=== PATIENT | female | born 1995 | race Caucasian/White ===

== ENCOUNTER 2022-12-22 10:40 | Outpatient (CLI) | payer BC, SELFPAY ==
--- NOTE | 2022-12-22 11:00 | CRLHL7_ITS ---
For Patients: As a result of the Century Cures Act, medical imaging exams and procedure reports are released immediately into your electronic medical record. You may view this report before your referring provider. If you have questions, please contact your health care provider. INDICATION: First trimester scan, establish dates. COMPARISON: None. TECHNIQUE: Real-time lopez-scale imaging of the pelvis was performed. FINDINGS: Sonographic imaging demonstrates a single living intrauterine gestation. The embryo demonstrates a regular cardiac rate measuring 152 beats per minute. The embryo`s crown-rump length measurement of 1.5 cm corresponds to a gestational age of 8 weeks 0 days with a sonographic due date of 08/03/2023. There is a normal-appearing yolk sac. There are no gross abnormalities noted within the embryo at this early state of development. The gestational sac has a normal appearance. There is a 2.0 x 1.4 x 3.8 cm perigestational hemorrhage. The amount of fluid within the sac appears appropriate for gestational age. The cervix is closed. The myometrium appears normal. The ovaries are of normal size. Corpus luteal cyst right ovary. There are no suspicious fluid collections noted in the cul-de-sac. IMPRESSION: Single living intrauterine with sonographic gestational age 8 weeks 0 days and sonographic due date 08/03/2023. Subchorionic hemorrhage is present measuring 2.0 x 1.4 x 3.8 cm. Dictated by Filipe Peacock MD @ 12/22/2022 11:39:58 AM (Electronically Signed)
== END 2022-12-22 10:41 | disposition home or self-care (01) ==
LOC: US 10:42
PROVIDERS: Visit Provider Registered Nurse
DX: Z34.91 Encounter for supervision of normal pregnancy, unspecified, first trimester (principal); Z3A.09 9 weeks gestation of pregnancy
CPT/HCPCS: 76817; 86592; 86703; 86762; 86787; 86803; 86850; 86900; 86901; 87086; 87340; 87491; 87591; T1013

== ENCOUNTER 2022-12-22 12:00 | Outpatient (CLI) | payer BC, SELFPAY ==
[2022-12-22 16:10] LABS: GC DNA Amplified* NOT DETECTED (No Detected)
[2022-12-22 17:09] LABS: Chlamydia DNA Amplified* DETECTED (No Detected)
== END 2022-12-22 12:01 | disposition home or self-care (01) ==
PROVIDERS: Visit Provider Registered Nurse
DX: Z34.91 Encounter for supervision of normal pregnancy, unspecified, first trimester (principal); Z3A.09 9 weeks gestation of pregnancy
CPT/HCPCS: 86592; 86703; 86762; 86787; 86803; 86850; 86900; 86901; 87086; 87340; 87491; 87591

== ENCOUNTER 2023-01-22 14:34 | Outpatient (CLI) | payer BC, SELFPAY ==
--- NOTE | 2023-01-22 14:00 | CRLHL7_ITS ---
For Patients: As a result of the Century Cures Act, medical imaging exams and procedure reports are released immediately into your electronic medical record. You may view this report before your referring provider. If you have questions, please contact your health care provider. INDICATION: NO FHTS IN CLINIC COMPARISON: 12/22/2022 TECHNIQUE: Real-time lopez-scale imaging of the pelvis was performed. FINDINGS: Intrauterine gestational sac measuring 4.5 cm, 10 weeks 2 days. pole with crown-rump length measuring 2.0 cm, 8 weeks 4 days, no significant growth compared to the prior study. No heart tones. Yolk sac enlarged measuring 7.7 millimeters. Hypoechoic echoes within the gestational sac. Margins of the gestational sac are irregular. Ovaries not visualized. IMPRESSION: Intrauterine demise. Dictated by Filipe Peacock MD @ 01/22/2023 3:27:09 PM (Electronically Signed)
== END 2023-01-22 14:35 | disposition home or self-care (01) ==
LOC: US 14:34
PROVIDERS: Visit Provider Registered Nurse
DX: O36.80X0 Pregnancy with inconclusive fetal viability, not applicable or unspecified (principal)
CPT/HCPCS: 76817; 87086

== ENCOUNTER 2023-01-28 07:09 | Day surgery (SDC) | payer BC, SELFPAY ==
[2023-01-28 07:37] VITALS: BMI 25.2
--- NOTE | 2023-01-28 07:43 | W.PM.H&PU ---
History & Physical Update History & Physical Update H&P Reviewed and patient assessed: No changes noted H&P Updates: Preoperative diagnosis: Missed at 8 weeks, 4 days by CRL Planned procedures: Suction uterine curettage Physical exam: General: No acute distress Psych: Alert and oriented x3, full affect HEENT: Normocephalic, atraumatic Heart: Regular rate and rhythm, no murmur rub or gallop Lungs: Clear to auscultation bilaterally Labs: Blood type O-positive Chlamydia positive 12/22/22, will repeat today
[2023-01-28 07:46] VITALS: BP 119/84; PULSE 80; RESP 16; TEMP 36.8; O2SAT 98
[2023-01-28] MEDS: ETHYL CHLORIDE 1 APPLICATION 1 APPLIC TOPICAL (08:02)
[2023-01-28] MEDS: LACTATED RINGERS 1000 ML 1,000 ML 100 ML IV ×2 (08:03→09:13)
[2023-01-28] MEDS: DOXYCYCLINE HYCLATE 100 MG in 0.9 % SODIUM CHLORIDE Mini-bag 100 ML IVPB (09:10)
[2023-01-28] MEDS: CEFAZOLIN 2 GM INJ IVP (09:13)
--- NOTE | 2023-01-28 09:13 | W.ANESCHARGE ---
Anesthesia Charges Start Date/Time Anesthesia Start Date: 01/28/23 Anesthesia Start Time: 08:59 Stop Date/Time Anesthesia Stop Date: 01/28/23 Anesthesia Stop Time: 09:53
[2023-01-28] MEDS: LIDOCAINE 1 % PF 30 ML 20 ML INJECTION (09:25)
[2023-01-28 09:52] VITALS: BP 102/62; PULSE 67; RESP 16; TEMP 36.8; O2SAT 96
--- NOTE | 2023-01-28 09:57 | W.ANESCHARGE ---
Anesthesia Charges Start Date/Time Anesthesia Start Date: 01/28/23 Anesthesia Start Time: 08:59 Stop Date/Time Anesthesia Stop Date: 01/28/23 Anesthesia Stop Time: 09:53
[2023-01-28 10:00] VITALS: BP 101/59; PULSE 78; RESP 16; O2SAT 99
[2023-01-28 10:15] VITALS: BP 113/70; PULSE 78; RESP 16; O2SAT 98
--- NOTE | 2023-01-28 10:28 | P.GYNPRC_ITS ---
Procedure Note Date of procedure: 01/28/23 Pre-op diagnosis: Missed at 8 weeks, 4 days by CRL. Recent history chalmydia Post-op diagnosis: same Procedure: Suction uterine curettage Anesthesia: MAC and local Complications: None Surgeon: Criss Sky MD Estimated blood loss (mL): 25 IV fluids (mL): 1,000 Urine Output (mL): 20 Pathology: specimen obtained, sent to pathology (Endometrial curetting ) Condition: stable Disposition: same day Findings: 1. Upon pelvic exam under anesthesia, the cervix and vagina were normal in appearance. Uterus was mobile and anteverted, consistent in size with 10 weeks gestation. There were no palpable adnexal masses. 2. Moderate amount of products of conception and blood obtained with suction curettage Procedure Description: Patient was taken to the operating with IV running. She had received cefazolin and doxycycline in preoperative prophylaxis. She was placed in dorsal lithotomy position. Monitored anesthesia care was administered. She was prepped and draped in the usual sterile fashion. Her bladder was straight catheterized Exam under anesthesia was performed for the above-noted findings. Speculum was inserted. Cervix was grasped along its anterior lip with an Allis clamp, then a tenaculum. Paracervical block was performed with a total of 10 mL of 1% lidocaine. The cervix was serially dilated to 10 Stateless. A size 9 rigid suction cannula was then passed through the cervix to the uterine fundus. Suction was applied, and the suction cannula was withdrawn along the path of insertion. This was repeated several more times, with obvious return of products of conception. Thereafter, sharp curettage was performed circumfe rentially, and a gritty texture was noted throughout. Minimal tissue was obtained with curettings. Procedure was deemed complete. The tenaculum was removed from the anterior lip the cervix, and hemostasis was noted despite a shallow anterior cervical laceration. Gonorrhea and chlamydia swab was collected from vagina. The speculum was then removed from the vagina. Patient tolerated procedure well and was taken recovery area in stable condition.
[2023-01-28 10:30] VITALS: BP 122/91; PULSE 87; RESP 16; O2SAT 97
[2023-01-28] MEDS: OXYCODONE 5 MG TABLET PO (10:35)
[2023-01-28 11:59] LABS: Chlamydia DNA Amplified* NOT DETECTED (No Detected); GC DNA Amplified* NOT DETECTED (No Detected)
== END 2023-01-28 11:12 | disposition home or self-care (01) ==
PROVIDERS: Visit Provider Obstetrics & Gynecology
PROC: (CPT 59820; principal; 2023-01-28 09:00)
DX: O02.1 Missed abortion (principal)
CPT/HCPCS: 59820; 00940; 01965; 87491; 87591; 88271; 88305; 88342; T1013; A9270; J0690; J1100; J1885; J2001; J2250; J2405; J2704; J3010; J7120

== ENCOUNTER 2023-02-16 11:46 | Outpatient (CLI) | payer BC, SELFPAY | END 2023-02-16 11:47 | disposition home or self-care (01) | LOC: NFLDREF 11:47 | PROVIDERS: Visit Provider Obstetrics & Gynecology | DX: O02.1 Missed abortion (principal) | CPT/HCPCS: 84702 ==

== ENCOUNTER 2024-10-18 08:57 | Outpatient (CLI) | payer MEDICAID, SELFPAY | END 2024-10-18 08:58 | disposition home or self-care (01) | PROVIDERS: Visit Provider Midwife | DX: Z34.83 Encounter for supervision of other normal pregnancy, third trimester (principal); Z3A.34 34 weeks gestation of pregnancy | CPT/HCPCS: 86592; 86703; 86706; 86803 ==

== ENCOUNTER 2024-10-31 11:27 | Outpatient (CLI) | payer MEDICAID, SELFPAY ==
[2024-11-01 12:25] LABS: Strep B DNA Probe POSITIVE (Negative)
[2024-11-01 12:40] LABS: Strep B Susceptibility Needed? No
== END 2024-10-31 11:28 | disposition home or self-care (01) ==
LOC: NFLDREF 11:28
PROVIDERS: Visit Provider Obstetrics & Gynecology
DX: Z34.82 Encounter for supervision of other normal pregnancy, second trimester (principal)
CPT/HCPCS: 87081; 87653

== ENCOUNTER 2024-11-12 22:58 | Inpatient (IN) | payer MEDICAID, SELFPAY ==
[2024-11-12 21:58] VITALS: BP 120/70; PULSE 93
[2024-11-12 22:10] LABS: Amnisure Rom* POSITIVE
--- NOTE | 2024-11-12 23:45 | P.LDBA_ITS ---
Subjective History of Present Illness Date Seen: 11/12/24 Narrative: Patient is being admitted to Labor and Delivery for SROM 1100. She is a 29 year old at 38.0 weeks gestation. Her full history and physical was dictated by Dr. Russell on 11/07/24. Please see this for details. Active movements. +LOF. Minimal contractions. Denies vaginal bleeding or abnormal vaginal discharge. Amnisure positive Specific Issues/Plans G2 P 0010 Partner: Pete? It is a boy! H&P completed by Drew on 11/07/2024. ? #Hx of partial hydatidiform mole in 2022 Send placenta to pathology Beta HCG at 6 week #GBS bacteriuria 07/13/24-JUAN negative 08/08/24 Recommend prophylaxis in labor? #abnormal GCT 08/31/2024-136. Passed 3 hr glucose? #Hx scoliosis- no surgery hx #not immune to hep B, has received 2 out of 3 vaccines #Not immune to Rubella-offer MMR PP ? IMAGING:??? 1st trimester: 05/02/24 at 10w6d, SLIUP consistent with dating.??? Anatomy scan: Completed 07/12 at [facility] - normal visualized anatomy, EFW 390g at 73%ile - BPD 61%, HC 82%, AC 65%, FL 85%. Anterior placenta. Cervix 3.8 cm. ? ? COVID:?? Flu:?07/13/2024? Tdap:? Hep B: 08/08/2024, 09/28/2024 32wk Mental Health:?10/18/2024 34wk hgb:?10/18/24?? Pap: [(Only high-risk abnormal pap in problem list)]? ?GBS positive Tx at [] weeks gestation from []?? OB Labs 07/13/24:??? Blood type: O+, antibody screen negative.??? Hgb 08/31/24: 11.6??? Cidlqknwd41/15/25: 253??? Rubella: non-immune??? Varicella: not drawn in this - immune in 2022 RPR: not drawn???- negative 10/18 HBsAg: not drawn HepBCore: nonreactive??? Hep C: not drawn?- negative 10/18 HIV: not drawn??- negative 10/18 UC: positive GBS- JUAN 08/08/24 negative? GC/Chlamydia 04/24/2024: negative/negative??? Pap result not included in records? Genetic screening: drawn and reported low risk XY, neg carrier, but result record not included. 1hr gtt 08/31/24: 136 (abnormal per their lab) 3 hr gtt: reported as normal in a note, but actual record requested again??? It does appear these labs were drawn that are missing for NOB, but records not included. They have been requested again 10/18/24. ? OB - Problem Based A/P Additional Plan (1) PROM (premature rupture of membranes): Status: Acute Plan - PROM at 11 am on 11/12/24 - Unfavorable cervix - Admit for induction - Induction plan: 25 mcg misoprostol PO per protocol x 2 doses, then will reassess if appropriate to switch to pitocin - OK to have morphine and/or Vistaril overnight - Pain management: will eventually want and epidural - GBS+, antibiotic intrapartum - NST: 135 bpm, moderate variability, multiple qualifying acel, negative decel. Overall, reactive and reassuring - [place]: Irritable OB Exam Physical Exam Vital signs: Pulse BP 93 120/70 11/12/24 21:58 11/12/24 21:58 Narrative: SVE: ft and high per RN
[2024-11-12] MEDS: AMPICILLIN 2 GM in 0.9 % SODIUM CHLORIDE Mini-bag 100 ML IVPB (23:47)
[2024-11-12] MEDS: LACTATED RINGERS 1000 ML 1,000 ML 25 ML IV (23:48)
[2024-11-12 23:58] LABS: Hematocrit 36.5 % (33.0-51.0); Hemoglobin* 12.3 gm/dL (12.0-16.0); Immature Granulocytes Abs Auto 0.03 K/uL (0.00-0.30); Immature Granulocytes Pct Auto 0.3 %; Lymphocytes Absolute Auto 1.90 K/uL (0.90-2.90); Mean Corpuscular HGB Conc 34 gm/dL (32-36); Mean Corpuscular Hemoglobin 30 pg (26-34); Mean Corpuscular Volume 88 fL (80-100); RDW Coefficient of Variation % 12.8 % (11.5-15.5); Red Blood Count 4.13 m/uL (4.00-5.20); White Blood Count* 8.91 K/uL (4.50-11.00)
[2024-11-13] VITALS (53 sets, daily range): BP systolic 101–138; BP diastolic 54–83; PULSE 78–104; RESP 18; TEMP 36.4–36.9; O2SAT 95–100
[2024-11-13] LABS: Slide Review Reflex No
[2024-11-13] MEDS: AMPICILLIN 1 GM in 0.9 % SODIUM CHLORIDE Mini-bag 100 ML IVPB ×5 (03:47→19:56)
--- NOTE | 2024-11-13 11:02 | P.OBPN_ITS ---
Subjective Date Seen: 11/13/24 Narrative: Ghislaine is a 29 yo woman currently at 38 1/7 weeks' gestation here for PROM at term. PROM occurred on 11/12 at 1100. She has had 3 doses of oral misoprostol since admit. She is not feeling strong contractions. She is GBS positive and has been receiving ampicillin. Objective Exam: Physical exam: Vitals as noted above. General: No acute distress. accompanied by her spouse. Interview in Algerian with the help of I-pad door closer mechanic Psych: Alert and oriented x 3, full affect, sitting on birthing ball Per RN, exam at around 8:15 AM: / high Vital Signs: Last Vital Signs Temp 98.2 F 11/13/24 10:15 Pulse 78 11/13/24 08:56 Resp 18 11/13/24 09:30 BP 118/67 11/13/24 08:56 Pulse Ox 95 11/13/24 04:06 Comments: tracing: Baseline 130, accelerations present, no decelerations, moderate variability Contractions are registering on toco every 1-4 minutes. Assessment Amniotic Membrane Status: SROM Status: Category l Tracing Comments: Reassuring. GBS positive, on ampicillin Labor Progress: Still not in active labor 24 hours after SROM. s/p 3 oral doses of cytotec Maternal Status: Reassuring Plan Plan: Begin Pitocin for IOL at 1245, as soon as able after last dose of cytotec. Continuous monitoring.
[2024-11-13] MEDS: OXYTOCIN 30 unit/500 ML in NS 30 UNIT/500 ML BAG IVPB (12:44)
[2024-11-13] MEDS: LACTATED RINGERS 1000 ML 1,000 ML 125 ML IV ×2 (12:53→19:16)
[2024-11-13] MEDS: ROPIVACAINE 0.2% 100 ml 100 ML 12 MG EPIDURAL (20:44)
[2024-11-13] MEDS: LIDOCAINE 2% (PF) 5 ML VIAL EPIDURAL (20:45)
[2024-11-13] MEDS: ROPIVACAINE 0.2 % PF 10 ML INJ 20 MG EPIDURAL (20:45)
--- NOTE | 2024-11-13 20:52 | P.ANBPRC_ITS ---
[facility] Medical History Missed ab ?O02.1 - Missed (ICD-10) Scoliosis ?M41.9 - Scoliosis, unspecified (ICD-10) Partial molar ?O08.89 - Other complications following an ectopic and molar (ICD- 10) Chlamydia ?A74.9 - Chlamydial infection, unspecified (ICD-10) Surgical History H/O dilation and curettage ?Z98.890 - Other specified postprocedural states (ICD-10) H/O plastic surgery ?Z98.890 - Other specified postprocedural states (ICD-10) Family History Grandmother Diabetes Social History What is your current living situation?: I presently have a place to live Problems where you live: no known problems In the past 12 months, utilities in danger of being shut off: no In past 12 months, lack of transportation kept you from medical appts, meetings, work, or getting things needed for daily living: no In the past 12 mos, have been you worried that your food would run out before you had money to buy more?: never true In the past 12 mos, the food you bought just didn't last and you didn't have money to buy more?: never true Smoking Status: Never smoker Non-prescribed substance use: denies use Caffeine: Yes (1 coffee ,1 coke) How often does anyone, including family, friends and others, physically hurt you : never How often does anyone, including family, friends and others, insult or talk down to you: never How often does anyone, including family, friends and others, threaten you with harm: never How often does anyone, including family, friends and others, scream or curse at you: never Meds Home Medications and Allergies Home Medications ?Medication ?Instructions ?Recorded ?Confirmed ?Type cholecalciferol (vitamin D3) 50 50 mcg PO QDAY 5 11/12/24 History mcg (2,000 unit) capsule omega 4-nqq-oif-fish oil 1,000 mg 1 cap PO QDAY 11/12/24 History (120 mg-180 mg) capsule (Fish Oil) vit 168-iron 27 mg-folic 1 cap PO DAILY 10/1811/12/24 History acid 800 mcg-omega3 235 mg capsule (One-A-Day -1) Allergies Allergy/AdvReac Type Severity Reaction Status Date / Time No Known Drug Allergies Allergy Verified 11/07/24 10:41 Results Labs Labs: Laboratory Results - last 24 hr 11/12/24 11/12/24 22:01 23:40 WBC 8.91 RBC 4.13 Hgb 12.3 Hct 36.5 MCV 88 MCH 30 MCHC 34 RDW Coeff of Zackery 12.8 Plt Count 216 Neut % (Auto) 71.0 Lymph % (Auto) 21.3 [place] % (Auto) 6.1 Eos % (Auto) 1.1 Baso % (Auto) 0.2 Neut # (Auto) 6.32 Lymph # (Auto) 1.90 [place] # (Auto) 0.50 Eos # (Auto) 0.10 Baso # (Auto) 0.02 Abs Immat Gran (auto) 0.03 Imm/Tot Granulo (auto) 0.3 Membrane Rupture POSITIVE Blood Type O Positive Antibody Screen NEGATIVE Vital Signs Vital Signs: Last Vital Signs Temp 98.3 F 11/13/24 20:33 Pulse 93 11/13/24 20:51 Resp 18 11/13/24 17:48 BP 119/59 L 11/13/24 20:51 Pulse Ox 99 11/13/24 20:49 Weight: 68.039 kg Height: 162.56 cm Anesthesia Procedures Epidural Insertion Patient Location: OB Start Time: 20:00 Stop Time: 20:52 Start Date: 11/13/24 Stop Date: 11/13/24 Reason for Block: procedure for pain Patient Position: sitting Performed By: Joe Jovel Preanesthetic Checklist: IV checked, risks and benefits discussed, surgical consent, monitors and equipment checked, pre-op evaluation, timeout performed and anesthesia consent Prep: chlorhexidine gluconate Monitoring: blood pressure monitoring, continuous pulse oximetry and heart rate Approach: midline Vertebral Space: lumbar (1-5) Epidural Technique: LEAH air Needle Type: Tuohy needle Injection Technique: continuous catheter Needle gauge: 17 Needle Length (cm): 10 cm Needle Insertion Depth (cm): 7 Catheter Gauge: 19 Catheter Type: multi-orifice Catheter at skin depth (cm): 13 Test Dose Result: negative and lidocaine 1.5% with epinephrine 1 to 200,000
--- NOTE | 2024-11-13 22:27 | P.OBPN_ITS ---
Subjective Date Seen: 11/13/24 Narrative: Ghislaine is a 29 yo woman currently at 38 1/7 weeks' gestation here for PROM at term. PROM occurred on 11/12 at 1100. She has had 3 doses of oral misoprostol since admit. She has been on oxytocin for IOL since 12:45 PM. She had an epidural a short time ago. The then had cervical exam per RN, 1.5 cm as noted below. She is currently feeling very anxious because she cannot move her legs. She is GBS positive and has been receiving ampicillin. Objective Exam: Physical exam: Vitals as noted above. General: No acute distress. accompanied by her spouse. Interview in Maltese with the help of nutrition representative Psych: Alert and oriented x 3, full affect, lying in bed Exam per RN: 1.5 / 60 / -1 Vital Signs: Last Vital Signs Temp 98.2 F 11/13/24 21:33 Pulse 93 11/13/24 22:00 Resp 18 11/13/24 17:48 BP 111/55 L 11/13/24 22:00 Pulse Ox 97 11/13/24 21:09 Comments: tracing: Baseline 130, accelerations present, no decelerations, moderate variability Contractions are registering on toco every 2 minutes. Assessment Amniotic Membrane Status: SROM Status: Category l Tracing Comments: Reassuring. GBS positive, on ampicillin Labor Progress: Still not in active labor nearly 36 hours after SROM and 9 hours after initiation of oxytocin Maternal Status: Anxiety caused by immobility, otherwise reassuring Plan Plan: I will reassess her exam at 0100. If she had not made significant change by that time, we will move towards for failed IOL. We discussed the flexibility we have in that time frame if status is reassuring and she is doing well. She expressed understanding Continuous monitoring.
[2024-11-13] MEDS: LACTATED RINGERS 1000 ML 1,000 ML 115 ML IV (22:32)
[2024-11-14] VITALS (32 sets, daily range): BP systolic 91–184; BP diastolic 54–95; PULSE 62–118; RESP 18–21; TEMP 36.3–37.3; O2SAT 95–98
[2024-11-14] MEDS: AMPICILLIN 1 GM in 0.9 % SODIUM CHLORIDE Mini-bag 100 ML IVPB ×2 (00:10→04:01)
--- NOTE | 2024-11-14 01:32 | P.OBPN_ITS ---
Subjective Time Seen by Provider: 01:05 Date Seen: 11/14/24 Narrative: Ghislaine is a 29 yo woman currently at 38 2/7 weeks' gestation here for PROM at term. PROM occurred on 11/12 at 1100. She has had 3 doses of oral misoprostol since admit. She has been on oxytocin for IOL since 12:45 PM on 11/13. She had an epidural the evening of 11/13 The then had cervical exam per RN, 1.5 cm as noted below. She received a dose of Vistaril 50 mg IV and was able to sleep. She is GBS positive and has been receiving ampicillin. She is not currently feeling contractions. Objective Exam: Physical exam: Vitals as noted above. General: No acute distress. accompanied by her spouse. Interview in Greenlandic with the help of medical interpreter Psych: Alert and oriented x 3, full affect, lying in bed Vaginal exam: complete and +2; suture is directly midline; uncertain if direct OA or OP Vital Signs: Last Vital Signs Temp 99.1 F 11/14/24 01:30 Pulse 100 11/14/24 01:19 Resp 18 11/13/24 17:48 BP 101/54 L 11/14/24 01:19 Pulse Ox 97 11/13/24 21:09 Comments: tracing over the last hour: Baseline 150, accelerations present, recurrent variable decelerations with contractions, moderate variability Contractions are registering on toco about every 5 minutes. Contractions Pitocin Rate (mU/min): 14 Assessment Amniotic Membrane Status: SROM Status: Category ll Tracing Comments: Category 2, overall reassuring GBS positive, on ampicillin Labor Progress: Now in second stage labor. Maternal Status: Reassuring Plan Plan: We pushed for approximately 25 minutes with the patient unable to move head; she is not feeling urge to push. We will reposition and try again in 30 minutes. Continuous monitoring.
[2024-11-14] MEDS: LIDOCAINE 1 % PF 30 ML INJECTION (04:15)
--- NOTE | 2024-11-14 04:57 | W.PM.VAGDEL1 ---
Procedure Delivery date: 11/14/24 Procedure Done: [employer] Procedure Details: The patient is a 29 year-old G 2 P 0-0-1-0 woman admitted on 11/12/2024 at 38 Weeks, 0 Days gestation for premature rupture membranes at term.? Cervical exam on admission was fingertip and high with membranes ruptured in vertex presentation.? heart rate demonstrated baseline 135 bpm with moderate variability, positive accelerations, no decelerations; a category 1 tracing.? SROM had occurred at 11:00 a.m. on 11/12/2024 with clear fluid. ? Labor Analgesia:? Epidural ? She received 3 doses of oral Cytotec followed by Pitocin for induction of labor. ? Labor onset:? 7:00 p.m. on 11/13/2024 ? Complete:? 1:08 a.m. on 11/14/2024 ? Pushing:? Initially she pushed for approximately 30 minutes without any descent of head and no urge to push. We took a break for 30 minutes and then resumed at 2:11 a.m.. At around 90 minutes into her 2nd stage, I performed a bedside ultrasound revealing 0P position. I was able to elevate the vertex out of the pelvis and turn the had clockwise with ease. Ultimately, it appears that descended in OP presentation given the location of the caput. ? heart tones during second stage were notable for intermittent variable decelerations. ? At 4:21 a.m. a viable male infant delivered in vertex OA presentation over second-degree perineal laceration via spontaneous vaginal delivery.? Just before delivery, appeared to rotate from LOP to LORA. Infant was placed on maternal abdomen.? Cord was clamped and cut after a 30-60 second delay.? Nose and mouth were bulb suctioned.? weight pending.? 8 at 1 minute and 9 at 5 minutes.? Shoulder dystocia: No.? Nuchal cord: No. ? Placenta delivered spontaneously and complete at 4:26 a.m. with a 3 vessel cord. ? Mother and infant were stable after delivery. ? Lacerations:? Second-degree, repaired with 2-0 Vicryl in the usual fashion. ? Blood loss: 400 mL. Blood loss measurement type: QBL ? Sponge and needles counts are correct. Events: Labor Induction and Premature Rupture of Membrane Intrapartal Events: Labor Augmentation, Labor Induction and Prolonged Labor >20 Hrs Delivery augmentation: pitocin Delivery monitor: external FHT Route of delivery: Episiotomy description: None Laceration description: Perineal - 2nd Degree Delivery repair: Vicryl Estimated blood loss (mL): 400 Anesthesia type: Epidural
[2024-11-14] MEDS: IBUPROFEN 600 MG TABLET PO ×3 (05:19→20:42)
[2024-11-14] MEDS: ACETAMINOPHEN 500 MG TABLET 1000 MG PO ×3 (08:12→23:58)
[2024-11-14] MEDS: DOCUSATE SODIUM 100 MG CAPSULE PO (08:12)
--- NOTE | 2024-11-14 13:23 | PM.ANPOST ---
Post Anesthesia Note Post Anesthesia Note Patient seen: Inpatient Respiratory Status: adequate Cardiovascular Status: adequate Mental Status: baseline Pain: adequate Temp: baseline Anesthetic awareness: N/A Complications: none Follow care: none
[2024-11-15] MEDS: IBUPROFEN 600 MG TABLET PO ×2 (03:00→09:15)
[2024-11-15 04:30] VITALS: BP 108/71; PULSE 75; RESP 17; TEMP 36.6; O2SAT 98
[2024-11-15] MEDS: ACETAMINOPHEN 500 MG TABLET 1000 MG PO (06:24)
--- NOTE | 2024-11-15 07:50 | P.DS_ITS ---
DS: Providers Provider Date Seen: 11/15/24 Date of admission: 11/12/24 22:58 Primary care physician: Not a Local Provider Admitting Clinician: Argelia Abreu MD Attending Physician on discharge: Adalberto GIORDANO Date of Discharge: 11/15/24 DS: Diagnosis Discharge Diagnosis (1) care and examination of lactating mother: Status: Acute (2) (normal spontaneous vaginal delivery): Status: Acute (3) Second degree perineal laceration: Status: Acute Exam Narrative: Exam Narrative: GENERAL APPEARANCE:? normal affect, alert, no distress MOOD:? appropriate CHEST:? clear to auscultation HEART:? regular rate and rhythm ABDOMEN:? soft, non-tender the uterine fundus is 1 finger breadth below Umbilicus, Midline and is appropriate for the stage of recovery. PERINEUM:? mild edema of the perineum, there is a Perineal Laceration,? that is well approximated with mild edema and no erythemal. EXTREMITIES:? normal and no edema Const: Vital Signs, click to edit/add: Vital Signs - 24 hr 11/14/24 08:00 11/14/24 12:09 11/14/24 17:12 Temperature 98.4 F 98.4 F 98.0 F Pulse Rate [Pulse Oximeter] 68 62 80 Respiratory Rate 18 18 18 Blood Pressure [Ri ght Arm] 113/64 114/74 Pulse Oximetry 98 98 96 Oxygen Delivery Me thod Room Air Room Air Room Air 11/14/24 20:32 11/14/24 23:51 11/15/24 04:30 Temperature 98.2 F 97.4 F L 97.9 F Pulse Rate [Pulse Oximeter] 77 77 75 Respiratory Rate 18 21 17 Blood Pressure [Ri ght Arm] 91/62 119/71 108/71 Pulse Oximetry 95 97 98 Oxygen Delivery Me thod Room Air Room Air Room Air OB - DS: Summary Hospital Course Hospital Course: Gurinder is a 29 y.o. G 2 P 1011 who was admitted to [facility] for PROM at term.? She had a NVD that was uncomplicated. The patient feels well.? The pain is well controlled with current medications.? She has no new complaints.? She is breast feeding and reports things are improving. She plans to stay til later in the day to get more comfortable with it before leaving. the patient has done well.? Vitals have been stable.? She has remained afebrile.? Has a good appetite, is tolerating a general diet.? She is voiding without difficulty.? She is passing gas and has not had a bowel movement.? She is ambulating and denies any dizziness.? Has small amount of rubra lochia. She is planning condoms for prevention.? ?? Problems: none? ?? plan:? Discharge home with baby.? Follow up in 2 weeks and 6 weeks.? , may see if needed? Hgb pending. ? Peripartum Data Infant delivery method: Vaginal Laceration description: Perineal - 2nd Degree Episiotomy description: None complications: none Gilbert Infant Gender: Male Infant Discharge Plan: Home Status at Discharge Functional status at discharge: independent ambulation Overall status at discharge: patient is progressing back to baseline Time Spent with Patient Time attestation: Total time spent providing and/or coordinating discharge services: Time spent: Less than 30 minutes Discharge Plan Discharge Disposition: Home, Self-Care Date of Admission: 11/12/24 22:58 Attending Provider on Discharge: Day Hernandez Primary Care Provider: Provider,Not a Local Condition: Stable Anticipated Discharge Date/Time: 11/15/24 16:55 Discharge Medications: New docusate sodium 100 mg Capsule 100 mg PO DAILY Qty: 60 0RF Continued One-A-Day -1 27 mg iron- 800 mcg-235 mg capsule 1 cap PO DAILY cholecalciferol (vitamin D3) 50 mcg (2,000 unit) capsule 50 mcg PO QDAY omega 1-beb-ncd-fish oil [Fish Oil] 1,000 (120-180) mg capsule 1 cap PO QDAY Discharge Orders: Discharge Order (Routine); Ordered 11/15/24 Ordered By: Day Hernandez Patient Education: OB Over the Counter Medication Information, OB Vaginal/Breast Feeding Additional Instructions: Discharge instructions were reviewed with the patient including signs and symptoms of infection and home going medications Nothing vaginally for 6 weeks: no tampons or intercourse Do not drive while taking narcotic pain medication(s) Off Work or School for 6 weeks Symptoms to report to doctor: * Bleeding that saturates more than one pad per hour * Passing clots larger than the size of a golf ball * Pain not relieved by prescribed medication * Fever above 100.4 degrees Fahrenheit * A foul vaginal odor * Difficulty in emotions, mood, and functions * Thoughts of hurting yourself and/or * Painful, reddened area in your breast * Any drainage, redness, or tenderness in your IV/epidural site * Severe headache that doesn't improve after taking medications * Changes in vision, including temporary loss of vision, blurred vision, and/or light sensitivity * Upper abdominal pain (usually under ribs on the right side) * Decrease in urination or painful, frequent urinating * Chest pain * Shortness of breath * Tenderness or pain with redness and/swelling in the calf(s) of your leg 2-week visit: discuss infant feeding concerns, review control options and screen for anxiety/depression. 6-week visit for an annual exam. consultation services are available to all mothers and babies for the first year after delivery.? To make an appointment, please call [phone]. Activity Level: Activity as Tolerated and No strenuous activity Discharge Diet: Regular Follow Up Appointments: [facility] [Provider Group] Forms: [employer] Info Instructions
[2024-11-15 08:00] LABS: Hemoglobin* 10.8 gm/dL (12.0-16.0)
[2024-11-15 09:09] VITALS: BP 106/70; PULSE 75; RESP 16; TEMP 36.8; O2SAT 97
[2024-11-15] MEDS: DOCUSATE SODIUM 100 MG CAPSULE PO (09:15)
== END 2024-11-15 16:46 | disposition home or self-care (01) | DRG 807 ==
LOC: OB OUT 22:58 → OB 22:58
PROVIDERS: Obstetrics & Gynecology; Admitting Provider Obstetrics & Gynecology; Visit Provider Obstetrics & Gynecology
DX: O42.12 Full-term premature rupture of membranes, onset of labor more than 24 hours following rupture (principal); Z37.0 Single live birth; O99.824 Streptococcus B carrier state complicating childbirth; O70.1 Second degree perineal laceration during delivery; O63.1 Prolonged second stage (of labor); Z3A.38 38 weeks gestation of pregnancy
CPT/HCPCS: 01967; 36415; 59200; 84112; 85018; 85025; 86592; 86850; 86900; 86901; 88307; G0463; T1013; A9270; J0290; J2003; J2795; J7120

== ENCOUNTER 2024-12-26 10:57 | Outpatient (CLI) | payer MEDICAID, SELFPAY ==
[2024-12-27 22:14] LABS: HPV Source Cervix
[2024-12-29 14:34] LABS: Pap Test Digital Imaging Done
== END 2024-12-26 10:58 | disposition home or self-care (01) ==
PROVIDERS: Visit Provider Physician Assistant
DX: Z39.1 Encounter for care and examination of lactating mother (principal); Z87.59 Personal history of other complications of pregnancy, childbirth and the puerperium
CPT/HCPCS: 84702; 87624; 87625; 88141; 88142; 88175